=== PATIENT | male | born 1965 | race Two or more races ===

== ENCOUNTER 2024-11-29 14:34 | Inpatient (IN) | payer SELFPAY ==
[~2024-11-29] VITALS: Ht 170.2 cm; Wt 105.2 kg
[2024-11-29 14:37] VITALS: O2SAT 98
[2024-11-29 15:21] LABS: BASOPHILS % 0.9 % (0.0-2.0); EOSINOPHILS % 0.7 % (0.0-5.0); HEMATOCRIT. 46.1 % (42.0-52.0); HEMOGLOBIN. 15.2 g/dL (14.0-18.0); MEAN CORPUSCULAR HEMOGLOBIN 27.7 pg (28.0-32.0); MEAN CORPUSCULAR HGB CONC 32.9 g/dL (31.0-37.0); MEAN CORPUSCULAR VOLUME 84.3 fL (80.0-94.0); MEAN PLATELET VOLUME 10.3 fl (7.4-10.4); MONOCYTES % 8.7 % (2.0-8.0); NEUTROPHILS % 62.7 % (40.0-76.0); PLATELET 230 x1000/uL (130-400); RED BLOOD CELL COUNT 5.47 mill/uL (4.7-6.1); RED CELL DISTRIBUTION WIDTH 14.5 % (11.6-14.6); WHITE BLOOD COUNT 10.3 x1000/uL (4.5-11.0)
[2024-11-29 15:25] LABS: CHLORIDE 106 mEq/L (98-107); POTASSIUM 4.2 mEq/L (3.5-5.1); SODIUM 142 mEq/L (136-145)
[2024-11-29 15:26] LABS: CALCIUM 9.5 mg/dL (8.7-10.4); CARBON DIOXIDE 27 mEq/L (21-32)
[2024-11-29 15:31] LABS: GLUCOSE 135 mg/dL (70-105); UREA NITROGEN BLOOD 13 mg/dL (9-23)
[2024-11-29 15:34] LABS: TROPONIN I HIGH SENSITIVITY 34 ng/L (3.0-53)
[2024-11-29 15:37] LABS: D-DIMER 0.42 mg/L FEU (<0.50); PARTIAL THROMBOPLASTIN TIME 28.1 sec (23.4-31.0); PROTHROMBIN TIME 10.3 sec (9.6-11.0)
[2024-11-29] MEDS: MORPHINE SULFATE 4 MG/ML INJ (FOR IV/IM USE) IV STA (15:43)
[2024-11-29] MEDS: ONDANSETRON HCL 4MG/2ML INJ IV STA (15:43)
[2024-11-29 17:30] LABS: TROPONIN I HIGH SENSITIVITY 64 ng/L (3.0-53)
[2024-11-29] MEDS: ENOXAPARIN 120MG/0.8ML SYR SUBCUT ONE (17:40)
[2024-11-29 18:00] VITALS: BP 155/87; PULSE 61; RESP 14; TEMP 36.7; TEMP 36.8; O2SAT 96
[2024-11-29] MEDS ORDERED: MAGNESIUM/ALUMINUM HYDROXIDE/SIMETHICONE 30ML UDC PO PRN (19:00)
[2024-11-29] MEDS ORDERED: HYDROCODONE/ACETAMINOPHEN 5/325MG TABLET PO PRN (19:00)
[2024-11-29] MEDS ORDERED: CLONIDINE 0.1MG TABLET PO PRN (19:00)
[2024-11-29] MEDS ORDERED: IPRATROPIUM/ALBUTEROL 0.5-3(2.5)MG/3ML NEB HHN PRN (19:00)
[2024-11-29] MEDS ORDERED: DOCUSATE SODIUM 100MG CAPSULE PO PRN (19:00)
[2024-11-29] MEDS ORDERED: MORPHINE SULFATE 2 MG/ML INJ (NOT FOR IM USE) IV PRN (19:00)
[2024-11-29] MEDS ORDERED: GUAIFENESIN 200MG/10ML SUGAR FREE UDC PO PRN (19:00)
[2024-11-29] MEDS ORDERED: NA PHOS,M-B/NA PHOS,DI-BA ENEMA 118ML PR PRN (19:00)
[2024-11-29] MEDS ORDERED: ONDANSETRON HCL 4MG/2ML INJ IV PRN (19:00)
[2024-11-29] MEDS ORDERED: ACETAMINOPHEN 325MG TABLET PO PRN ×2 (19:00)
[2024-11-29] MEDS ORDERED: DEXTROSE 50% WATER 50ML SYRINGE IV PRN (19:00)
[2024-11-29] MEDS ORDERED: FELO5TAB46 PO (19:20)
[2024-11-29 19:31] LABS: ALANINE AMINOTRANSFERASE 45 IU/L (10-49); ALBUMIN 3.6 g/dL (3.2-4.8); ASPARTATE AMINOTRANSFERASE 22 IU/L (<34); BILIRUBIN DIRECT 0.1 mg/dL (<=3.0); BILIRUBIN TOTAL 0.4 mg/dL (0.1-1.0); PHOSPHORUS 2.3 mg/dL (2.5-4.9); PROTEIN TOTAL 6.9 g/dL (6.0-8.3)
[2024-11-29] MEDS: PANTOPRAZOLE 40MG DR TABLET PO SCH (19:36)
[2024-11-29 19:46] LABS: HEPATITIS B SURFACE ANTIGEN NEGATIVE (Negative)
[2024-11-29 20:00] VITALS: BP 155/84; PULSE 58; RESP 16; TEMP 36.4; O2SAT 94
[2024-11-29 20:07] LABS: HEPATITIS C AB NON REACTIVE (Neg) (Negative)
[2024-11-29] MEDS: BLOOD SUGAR DIAGNOSTIC STRIP TEST SCH (21:56)
[2024-11-29] MEDS ORDERED: NALOXONE HCL 0.4MG/ML VIAL IV PRN (22:00)
[2024-11-29] MEDS: ENOXAPARIN 100MG/ML SYR SUBCUT SCH (22:05)
[2024-11-29 22:32] LABS: CREATINE KINASE 497 IU/L (46-171)
[2024-11-29 22:43] LABS: TROPONIN I HIGH SENSITIVITY 2979 ng/L (3.0-53)
[2024-11-29] MEDS ORDERED: IOHEXOL-350 100 ML BOTTLE ONE (23:10)
[2024-11-29] MEDS: POTASSIUM PHOSPHATE 15 MMOL in DEXT 5% WATER 245 ML IV NR (23:20)
[2024-11-30] VITALS (11 sets, daily range): BP systolic 140–160; BP diastolic 75–98; PULSE 61–87; RESP 14–20; TEMP 36.4–36.8; O2SAT 90–96
[2024-11-30 05:06] LABS: CLARITY URINE CLEAR (CLEAR); COLOR URINE YELLOW (YELLOW); GLUCOSE URINE NEGATIVE (NEGATIVE); KETONES URINE NEGATIVE (NEGATIVE); LEUKOCYTE ESTERASE URINE NEGATIVE (NEGATIVE); NITRITE URINE NEGATIVE (NEGATIVE); OCCULT BLOOD URINE NEGATIVE (NEGATIVE); PROTEIN URINE NEGATIVE (NEGATIVE); SPECIFIC GRAVITY URINE 1.052 (1.005-1.030); UROBILINOGEN URINE 0.2 E.U./dL (0.2-1.0)
[2024-11-30 05:15] LABS: *AMPHETAMINES SCREEN URINE NEGATIVE (NEGATIVE); *BARBITURATES SCREEN URINE NEGATIVE (NEGATIVE); *BENZODIAZEPINES SCREEN URINE NEGATIVE (NEGATIVE); *COCAINE SCREEN URINE NEGATIVE (NEGATIVE); METHADONE URINE SCREEN NEGATIVE (NEGATIVE); OPIATES URINE SCREEN PRESUMPTIVE POSITIVE (NEGATIVE); PHENCYCLIDINE URINE SCREEN NEGATIVE (NEGATIVE)
[2024-11-30 05:16] LABS: CANNABINOID URINE SCREEN NEGATIVE (NEGATIVE); ECSTASY MDMA SCREEN URINE NEGATIVE (NEGATIVE)
[2024-11-30 07:42] LABS: CHLORIDE 104 mEq/L (98-107); POTASSIUM 4.1 mEq/L (3.5-5.1); SODIUM 138 mEq/L (136-145)
[2024-11-30 07:43] LABS: CALCIUM 9.2 mg/dL (8.7-10.4); CARBON DIOXIDE 25 mEq/L (21-32)
[2024-11-30 07:48] LABS: CREATININE 0.8 mg/dL (0.6-1.3); GLUCOSE 111 mg/dL (70-105); TRIGLYCERIDE 152 mg/dL (0-150); UREA NITROGEN BLOOD 9 mg/dL (9-23)
[2024-11-30 07:49] LABS: LDL CHOLESTEROL 153 mg/dL (5-100)
[2024-11-30 07:50] LABS: CHOLESTEROL 200 mg/dL (<200); CREATINE KINASE 833 IU/L (46-171); HDL CHOLESTEROL 33 mg/dL (>55)
[2024-11-30 07:52] LABS: T4 FREE 1.14 ng/dL (0.89-1.76)
[2024-11-30 07:53] LABS: THYROID STIMULATING HORMONE 1.49 uIU/mL (0.55-4.78)
[2024-11-30 08:03] LABS: TROPONIN I HIGH SENSITIVITY 11274 ng/L (3.0-53)
[2024-11-30 08:08] LABS: BASOPHILS % 0.7 % (0.0-2.0); EOSINOPHILS % 0.8 % (0.0-5.0); HEMATOCRIT. 44.6 % (42.0-52.0); HEMOGLOBIN. 14.3 g/dL (14.0-18.0); LYMPHOCYTES % 26.7 % (20.0-50.0); MEAN CORPUSCULAR HEMOGLOBIN 26.9 pg (28.0-32.0); MEAN PLATELET VOLUME 10.9 fl (7.4-10.4); MONOCYTES % 8.9 % (2.0-8.0); NEUTROPHILS % 62.9 % (40.0-76.0); PLATELET 218 x1000/uL (130-400); RED BLOOD CELL COUNT 5.31 mill/uL (4.7-6.1); RED CELL DISTRIBUTION WIDTH 14.7 % (11.6-14.6); WHITE BLOOD COUNT 11.5 x1000/uL (4.5-11.0)
[2024-11-30] MEDS: ASPIRIN 81MG TABLET PO SCH (08:45)
[2024-11-30] MEDS: AMLODIPINE 5MG TABLET PO SCH (08:46)
[2024-11-30] MEDS: NITROGLYCERIN 0.4MG TABLET SL SL ONE (08:55)
[2024-11-30] MEDS ORDERED: NITROGLYCERIN 0.4MG TABLET SL SL PRN (12:30)
[2024-11-30 13:59] LABS: CREATINE KINASE MB FRACTION 113.5 ng/mL (0.5-3.6)
[2024-11-30 20:56] LABS: CREATINE KINASE MB FRACTION 83.2 ng/mL (0.5-3.6)
[2024-11-30] MEDS: ATORVASTATIN CALCIUM 40MG TABLET PO SCH (21:57)
[2024-11-30] MEDS: METOPROLOL TARTRATE 25MG TABLET PO SCH (21:58)
[2024-12-01] VITALS (20 sets, daily range): BP systolic 106–159; BP diastolic 73–113; PULSE 58–80; RESP 14–21; TEMP 36.5–37.1; O2SAT 92–98
[2024-12-01 01:52] LABS: CREATINE KINASE MB FRACTION 50.8 ng/mL (0.5-3.6)
[2024-12-01 06:07] LABS: BASOPHILS % 0.6 % (0.0-2.0); EOSINOPHILS % 0.7 % (0.0-5.0); HEMOGLOBIN. 15.7 g/dL (14.0-18.0); MEAN CORPUSCULAR HEMOGLOBIN 27.2 pg (28.0-32.0); MEAN CORPUSCULAR HGB CONC 32.1 g/dL (31.0-37.0); MEAN CORPUSCULAR VOLUME 84.8 fL (80.0-94.0); MEAN PLATELET VOLUME 10.4 fl (7.4-10.4); MONOCYTES % 12.2 % (2.0-8.0); NEUTROPHILS % 65.5 % (40.0-76.0); PLATELET 182 x1000/uL (130-400); RED BLOOD CELL COUNT 5.79 mill/uL (4.7-6.1); RED CELL DISTRIBUTION WIDTH 14.8 % (11.6-14.6); WHITE BLOOD COUNT 12.7 x1000/uL (4.5-11.0)
[2024-12-01 06:17] LABS: CHLORIDE 104 mEq/L (98-107); POTASSIUM 4.1 mEq/L (3.5-5.1); SODIUM 139 mEq/L (136-145)
[2024-12-01 06:18] LABS: CALCIUM 9.4 mg/dL (8.7-10.4)
[2024-12-01 06:19] LABS: CARBON DIOXIDE 26 mEq/L (21-32)
[2024-12-01 06:24] LABS: GLUCOSE 100 mg/dL (70-105); UREA NITROGEN BLOOD 8 mg/dL (9-23)
[2024-12-01] MEDS ORDERED: VERAPAMIL HCL 2.5 MG/1 ML 2ML VIAL IV ONE (11:36)
[2024-12-01] MEDS ORDERED: IODIXANOL 320MG/ML 100 ML BOTTLE IV ONE (11:36)
[2024-12-01] MEDS ORDERED: HEPARIN 1000 UNITS/ML 10ML ONE (11:36)
[2024-12-01] MEDS ORDERED: LIDOCAINE HCL 1% 10 MG/ML 10ML VIAL ONE (11:36)
[2024-12-01] MEDS ORDERED: DIPHENHYDRAMINE 50MG/ML VIAL ONE (12:18)
[2024-12-01] MEDS ORDERED: MIDAZOLAM HCL 2 MG/2 ML VIAL ONE (12:18)
[2024-12-01] MEDS ORDERED: FENTANYL CITRATE/PF 50MCG/ML 2ML VIAL ONE (12:18)
[2024-12-01] MEDS ORDERED: ACETAMINOPHEN 325MG TABLET PO PRN (13:45)
[2024-12-01] MEDS ORDERED: ATROPINE SULFATE 1MG/10ML SYR IV PRN (13:45)
[2024-12-01] MEDS: ENOXAPARIN 100MG/ML SYR SUBCUT SCH (21:02)
[2024-12-02] VITALS: BP 119/78; PULSE 67; RESP 22; TEMP 37.1; O2SAT 93
[2024-12-02 04:00] VITALS: BP 116/72; PULSE 65; RESP 21; TEMP 37.2; O2SAT 93
[2024-12-02 06:35] LABS: CHLORIDE 104 mEq/L (98-107); SODIUM 136 mEq/L (136-145)
[2024-12-02 06:36] LABS: CARBON DIOXIDE 26 mEq/L (21-32)
[2024-12-02 06:37] LABS: CALCIUM 9.2 mg/dL (8.7-10.4)
[2024-12-02 06:40] LABS: BASOPHILS % 0.5 % (0.0-2.0); EOSINOPHILS % 0.7 % (0.0-5.0); HEMATOCRIT. 45.8 % (42.0-52.0); LYMPHOCYTES % 24.1 % (20.0-50.0); MEAN CORPUSCULAR HEMOGLOBIN 26.8 pg (28.0-32.0); MEAN CORPUSCULAR HGB CONC 32.7 g/dL (31.0-37.0); MEAN CORPUSCULAR VOLUME 82.1 fL (80.0-94.0); MEAN PLATELET VOLUME 10.3 fl (7.4-10.4); MONOCYTES % 12.6 % (2.0-8.0); NEUTROPHILS % 62.1 % (40.0-76.0); PLATELET 178 x1000/uL (130-400); RED BLOOD CELL COUNT 5.58 mill/uL (4.7-6.1); RED CELL DISTRIBUTION WIDTH 14.5 % (11.6-14.6); WHITE BLOOD COUNT 12.8 x1000/uL (4.5-11.0)
[2024-12-02 06:41] LABS: CREATININE 0.9 mg/dL (0.6-1.3); GLUCOSE 105 mg/dL (70-105); UREA NITROGEN BLOOD 12 mg/dL (9-23)
[2024-12-02 07:04] VITALS: BP 122/77; PULSE 67; RESP 22; TEMP 37.3; TEMP 37.8; O2SAT 92
[2024-12-02] MEDS: CEFTRIAXONE 1GM/50ML 50 ML IV SCH (09:51)
[2024-12-02] MEDS: AZITHROMYCIN 500MG/250ML 250 ML IV SCH (10:40)
[2024-12-02 11:06] VITALS: BP 114/64; PULSE 68; RESP 21; O2SAT 95
[2024-12-02] MEDS ORDERED: AMLO5TAB88 PO (11:06)
[2024-12-02] MEDS ORDERED: METO25TA6 PO (11:06)
[2024-12-02] MEDS ORDERED: LIP40 PO (11:06)
[2024-12-02] MEDS ORDERED: ASPI-1160 PO (11:06)
[2024-12-02] MEDS ORDERED: NITR0.4T49 SL (11:36)
[2024-12-02] MEDS ORDERED: APIX5TAB PO (11:38)
[2024-12-02] MEDS ORDERED: CLOP-31 PO (11:50)
[2024-12-02 12:00] VITALS: BP 111/78; PULSE 60; RESP 19; O2SAT 91
[2024-12-02 16:00] VITALS: BP 138/85; PULSE 72; RESP 16; TEMP 36.7; O2SAT 92
== END 2024-12-02 19:40 | disposition home or self-care (01) | DRG 190 ==
LOC: ER 14:34 → EDBEDREQ 14:49 → 3WST 17:48
PROVIDERS: ADMIT Internal Medicine; ATTEND Internal Medicine
PROC: 4A023N7 Measurement of Cardiac Sampling and Pressure, Left Heart, Percutaneous Approach (ICD-10-PCS; principal; 2024-12-01)
PROC: B2111ZZ Fluoroscopy of Multiple Coronary Arteries using Low Osmolar Contrast (ICD-10-PCS; 2024-12-01)
DX: I21.4 Non-ST elevation (NSTEMI) myocardial infarction (principal); I26.99 Other pulmonary embolism without acute cor pulmonale; I25.119 Atherosclerotic heart disease of native coronary artery with unspecified angina pectoris; Z20.822 Contact with and (suspected) exposure to COVID-19; E83.39 Other disorders of phosphorus metabolism; I10 Essential (primary) hypertension; R73.03 Prediabetes; J06.9 Acute upper respiratory infection, unspecified; M13.88 Other specified arthritis, other site; Z79.82 Long term (current) use of aspirin; Z80.9 Family history of malignant neoplasm, unspecified
CPT/HCPCS: 36415; 71045; 71275; 80048; 80061; 80076; 80305; 81003; 82550; 82553; 82962; 83036; 83605; 83735; 83880; 84100; 84439; 84443; 84484; 85025; 85347; 85379; 86705; 87340; 87426; 93005; 93306; 93458; 93880; 93923; 93970; 97165; 99291; A4606; C1769; C1887; C1893; J0456; J0696; J1200; J1644; J1650; J2003; J2250; J2270; J2405; J3010; J3490; J7060; Q9967

== ENCOUNTER 2024-12-15 10:43 | Inpatient (IN) | payer SELFPAY ==
[~2024-12-15] VITALS: Ht 172.7 cm; Wt 105.0 kg
[~2024-12-15 10:43] MED LIST: AMLO5TAB88 PO; APIX5TAB PO; ASPI-1160 PO; CLOP-31 PO; LIP40 PO; METO25TA6 PO; NITR0.4T49 SL
[2024-12-15 11:34] LABS: BASOPHILS % 0.7 % (0.0-2.0); HEMATOCRIT. 47.3 % (42.0-52.0); HEMOGLOBIN. 15.9 g/dL (14.0-18.0); LYMPHOCYTES % 27.7 % (20.0-50.0); MEAN CORPUSCULAR HEMOGLOBIN 27.3 pg (28.0-32.0); MEAN CORPUSCULAR HGB CONC 33.6 g/dL (31.0-37.0); MEAN CORPUSCULAR VOLUME 81.3 fL (80.0-94.0); MEAN PLATELET VOLUME 9.7 fl (7.4-10.4); MONOCYTES % 13.8 % (2.0-8.0); NEUTROPHILS % 56.8 % (40.0-76.0); PLATELET 281 x1000/uL (130-400); RED BLOOD CELL COUNT 5.83 mill/uL (4.7-6.1); RED CELL DISTRIBUTION WIDTH 14.1 % (11.6-14.6); WHITE BLOOD COUNT 7.5 x1000/uL (4.5-11.0)
[2024-12-15 11:44] LABS: CHLORIDE 106 mEq/L (98-107); POTASSIUM 4.3 mEq/L (3.5-5.1); SODIUM 136 mEq/L (136-145)
[2024-12-15 11:45] LABS: CALCIUM 9.5 mg/dL (8.7-10.4); CARBON DIOXIDE 23 mEq/L (21-32)
[2024-12-15 11:50] LABS: GLUCOSE 126 mg/dL (70-105); UREA NITROGEN BLOOD 11 mg/dL (9-23)
[2024-12-15 11:52] LABS: ALANINE AMINOTRANSFERASE 74 IU/L (10-49); ALBUMIN 4.2 g/dL (3.2-4.8); ASPARTATE AMINOTRANSFERASE 30 IU/L (<34); BILIRUBIN TOTAL 0.6 mg/dL (0.1-1.0)
[2024-12-15] MEDS: ASPIRIN 325MG EC TABLET PO NR (11:55)
[2024-12-15] MEDS: NITROGLYCERIN 0.4MG TABLET SL SL NR (11:55)
[2024-12-15 13:49] LABS: PROTEIN TOTAL 9.2 g/dL (6.0-8.3)
[2024-12-15 13:50] LABS: TROPONIN I HIGH SENSITIVITY 350 ng/L (3.0-53)
[2024-12-15] MEDS ORDERED: LORAZEPAM 0.5MG TABLET PO PRN (16:30)
[2024-12-15] MEDS ORDERED: ACETAMINOPHEN 325MG TABLET PO PRN ×3 (16:30→18:00)
[2024-12-15] MEDS ORDERED: DOCUSATE SODIUM 100MG CAPSULE PO PRN (16:30)
[2024-12-15] MEDS ORDERED: GUAIFENESIN 200MG/10ML SUGAR FREE UDC PO PRN (16:30)
[2024-12-15] MEDS ORDERED: IPRATROPIUM/ALBUTEROL 0.5-3(2.5)MG/3ML NEB HHN PRN (16:30)
[2024-12-15 17:51] VITALS: BP 148/90; PULSE 71; RESP 17; TEMP 36.9
[2024-12-15] MEDS ORDERED: NITROGLYCERIN 0.4MG TABLET SL SL PRN (18:00)
[2024-12-15 19:00] LABS: INR 1.1; PARTIAL THROMBOPLASTIN TIME 33.1 sec (23.4-31.0); PROTHROMBIN TIME 11.3 sec (9.6-11.0)
[2024-12-15 20:04] VITALS: BP 136/80; PULSE 65; RESP 18; TEMP 36.6; O2SAT 96
[2024-12-15 20:49] LABS: CLARITY URINE CLOUDY (CLEAR); COLOR URINE YELLOW (YELLOW); GLUCOSE URINE NEGATIVE (NEGATIVE); KETONES URINE NEGATIVE (NEGATIVE); LEUKOCYTE ESTERASE URINE NEGATIVE (NEGATIVE); NITRITE URINE NEGATIVE (NEGATIVE); OCCULT BLOOD URINE NEGATIVE (NEGATIVE); PROTEIN URINE TRACE (NEGATIVE); SPECIFIC GRAVITY URINE 1.023 (1.005-1.030)
[2024-12-15] MEDS ORDERED: BISACODYL 10MG SUPP PR PRN (21:00)
[2024-12-15] MEDS ORDERED: DIPHENHYDRAMINE 25MG CAPSULE PO PRN (21:00)
[2024-12-15 21:43] LABS: BACTERIA URINE 1+; RBC URINE 0-2 /hpf (0-2); SQUAMOUS EPITHELIAL CELL URINE 1+ /lpf (RARE/1+); WBC URINE 0-2 /hpf (0-2)
[2024-12-15] MEDS: ASCORBIC ACID 500 MG TABLET PO SCH (21:58)
[2024-12-15] MEDS: DOCUSATE SODIUM 100MG CAPSULE PO SCH (21:58)
[2024-12-15] MEDS: ALLOPURINOL 300 MG TABLET PO SCH (21:59)
[2024-12-15] MEDS: CHLORHEXIDINE GLUCONATE 4% EXTERNAL USE TOP SCH (22:05)
[2024-12-16] VITALS (36 sets, daily range): BP systolic 93–136; BP diastolic 53–97; PULSE 57–116; RESP 16–29; TEMP 36.3–36.8; O2SAT 91–99
[2024-12-16 00:16] LABS: CREATINE KINASE MB FRACTION 2.1 ng/mL (0.5-3.6)
[2024-12-16 01:30] LABS: CLARITY URINE CLEAR (CLEAR); COLOR URINE YELLOW (YELLOW); GLUCOSE URINE NEGATIVE (NEGATIVE); KETONES URINE NEGATIVE (NEGATIVE); LEUKOCYTE ESTERASE URINE NEGATIVE (NEGATIVE); NITRITE URINE NEGATIVE (NEGATIVE); OCCULT BLOOD URINE NEGATIVE (NEGATIVE); PH URINE 5.5 (4.5-8.0); PROTEIN URINE NEGATIVE (NEGATIVE); SPECIFIC GRAVITY URINE 1.016 (1.005-1.030); UROBILINOGEN URINE 0.2 E.U./dL (0.2-1.0)
[2024-12-16] MEDS ORDERED: THROMBIN (BOVINE) 5000 UNITS/VIAL TOP ONE (06:16)
[2024-12-16] MEDS ORDERED: SKIN ADHESIVE 0.7 GM EA TOP ONE (06:16)
[2024-12-16] MEDS ORDERED: POLYMYXIN B SULFATE 500000 UNITS/VIAL ONE (06:16)
[2024-12-16] MEDS ORDERED: NITROGLYCERIN 50MG PREMIX 250 ML IV ONE (06:41)
[2024-12-16] MEDS ORDERED: DOPAMINE 400MG/250ML PREMIX 250 ML IV ONE (06:41)
[2024-12-16] MEDS ORDERED: NICARDIPINE 40MG/200ML PREMIX 200 ML IV ONE (06:41)
[2024-12-16] MEDS ORDERED: DEXMEDETOMIDINE 400 MCG/100 ML 100 ML IV ONE (06:41)
[2024-12-16] MEDS ORDERED: SEVOFLURANE 250 ML LIQUID INH ONE (06:41)
[2024-12-16] MEDS ORDERED: HEPARIN 1000 UNITS/ML 10ML ONE ×3 (06:52→14:45)
[2024-12-16] MEDS ORDERED: SUGAMMADEX SODIUM 200MG/2ML VIAL IV ONE (07:13)
[2024-12-16] MEDS ORDERED: ACETAMINOPHEN 1000MG/100ML 100 ML IV ONE (07:13)
[2024-12-16 07:36] LABS: CREATINE KINASE MB FRACTION 1.6 ng/mL (0.5-3.6)
[2024-12-16] MEDS ORDERED: INSULIN REGULAR 100 U/100 ML PREMIX IV PRN (09:00)
[2024-12-16] MEDS ORDERED: NICARDIPINE 40MG/200ML PREMIX 200 ML IV PRN (09:00)
[2024-12-16] MEDS ORDERED: DOBUTAMINE 250 MG/250 ML PREMIX IV PRN (09:00)
[2024-12-16] MEDS ORDERED: LR with VERAPAMIL, NTG, HEPARIN, SODIUM BICARBONATE (Soln) IV PRN (09:00)
[2024-12-16] MEDS ORDERED: PAPAVERINE HCL 180MG in SODIUM CHLORIDE 0.9% 24ML IV PRN (09:00)
[2024-12-16] MEDS: CLONIDINE 0.1MG TABLET PO PRN (09:08)
[2024-12-16] MEDS: CHLORHEXIDINE GLUCONATE 4% EXTERNAL USE TOP SCH (09:08)
[2024-12-16] MEDS: BLOOD SUGAR DIAGNOSTIC STRIP TEST NR (10:57)
[2024-12-16] MEDS ORDERED: PHENYLEPHRINE HCL 10MG/ML 1ML IV ONE (12:51)
[2024-12-16] MEDS ORDERED: CALCIUM CHLORIDE 1GM/10ML SYR IV ONE (12:53)
[2024-12-16] MEDS ORDERED: LIDOCAINE HCL 2% 5ML SYRINGE IV ONE (12:54)
[2024-12-16] MEDS ORDERED: ROCURONIUM BROMIDE 10MG/ML VIAL 5ML IV ONE ×3 (12:55→13:35)
[2024-12-16] MEDS ORDERED: PROPOFOL 200MG/20ML VIAL IV ONE ×2 (12:55→14:48)
[2024-12-16] MEDS ORDERED: FENTANYL CITRATE/PF 50MCG/ML 2ML VIAL ONE (12:56)
[2024-12-16] MEDS ORDERED: AMINOCAPROIC ACID 250 MG/ML 20ML VIAL ONE (13:31)
[2024-12-16] MEDS ORDERED: METOCLOPRAMIDE HCL 10MG/2ML VIAL ONE (13:34)
[2024-12-16] MEDS ORDERED: FUROSEMIDE 20MG/2ML VIAL ONE ×3 (13:37→15:59)
[2024-12-16] MEDS ORDERED: EPINEPHRINE 0.1MG/ML (1:10,000) 10ML SYR ONE (13:58)
[2024-12-16] MEDS ORDERED: AMIODARONE HCL 50MG/ML 3ML VIAL IV ONE (15:30)
[2024-12-16] MEDS ORDERED: SODIUM BICARBONATE 8.4% 50MEQ/50ML SYR IV ONE ×2 (15:33)
[2024-12-16] MEDS ORDERED: KETOROLAC 30MG/ML VIAL ONE (15:38)
[2024-12-16] MEDS ORDERED: ONDANSETRON HCL 4MG/2ML INJ ONE (15:38)
[2024-12-16] MEDS ORDERED: KCL 20MEQ/100ML PREMIX 200 ML IV ONE (15:39)
[2024-12-16] MEDS ORDERED: ACETAMINOPHEN 325MG TABLET PO PRN (16:00)
[2024-12-16] MEDS ORDERED: MAGNESIUM 1 G PREMIX 100 ML IV PRN (16:00)
[2024-12-16] MEDS ORDERED: ALBUMIN HUMAN 25GM/100ML (25%) IV PRN (16:00)
[2024-12-16] MEDS ORDERED: ALBUMIN HUMAN 12.5G/250ML (5%) IV PRN (16:00)
[2024-12-16] MEDS ORDERED: ALBUMIN HUMAN 12.5G/250ML (5%) IV ONE (16:07)
[2024-12-16 16:21] LABS: CHLORIDE 105 mEq/L (98-107); POTASSIUM 3.5 mEq/L (3.5-5.1); SODIUM 142 mEq/L (136-145)
[2024-12-16 16:22] LABS: CARBON DIOXIDE 23 mEq/L (21-32)
[2024-12-16 16:23] LABS: CALCIUM 8.3 mg/dL (8.7-10.4)
[2024-12-16 16:27] LABS: CREATININE 1.2 mg/dL (0.6-1.3)
[2024-12-16 16:28] LABS: UREA NITROGEN BLOOD 14 mg/dL (9-23)
[2024-12-16 16:29] LABS: ALANINE AMINOTRANSFERASE 63 IU/L (10-49); ALBUMIN 3.1 g/dL (3.2-4.8); ASPARTATE AMINOTRANSFERASE 26 IU/L (<34)
[2024-12-16 16:30] LABS: BILIRUBIN TOTAL 0.5 mg/dL (0.1-1.0); PHOSPHORUS 4.9 mg/dL (2.5-4.9); PROTEIN TOTAL 6.9 g/dL (6.0-8.3)
[2024-12-16] MEDS ORDERED: MAGNESIUM SULFATE 3 GM in DEXT 5% WATER 100 ML IV PRN (16:30)
[2024-12-16] MEDS ORDERED: DEXTROSE 50% WATER 50ML SYRINGE IV PRN ×2 (16:30)
[2024-12-16] MEDS ORDERED: EPINEPHRINE 5 MG in DEXT 5% WATER 245 ML IV PRN (16:30)
[2024-12-16] MEDS: BLOOD SUGAR DIAGNOSTIC STRIP TEST SCH ×2 (16:30→18:00)
[2024-12-16] MEDS ORDERED: CALCIUM CHLORIDE 3,000 MG in DEXT 5% WATER 250 ML IV PRN (16:30)
[2024-12-16] MEDS ORDERED: SODIUM CHLORIDE 0.9% 500 ML IV PRN (16:30)
[2024-12-16] MEDS ORDERED: CALCIUM CHLORIDE 5,000 MG in DEXT 5% WATER 500 ML IV PRN (16:30)
[2024-12-16 16:32] LABS: BASOPHILS % 0.4 % (0.0-2.0); EOSINOPHILS % 0.6 % (0.0-5.0); HEMATOCRIT. 40.8 % (42.0-52.0); HEMOGLOBIN. 13.1 g/dL (14.0-18.0); LYMPHOCYTES % 28.7 % (20.0-50.0); MEAN CORPUSCULAR HEMOGLOBIN 26.1 pg (28.0-32.0); MEAN CORPUSCULAR HGB CONC 32.1 g/dL (31.0-37.0); MEAN CORPUSCULAR VOLUME 81.4 fL (80.0-94.0); MEAN PLATELET VOLUME 10.8 fl (7.4-10.4); MONOCYTES % 4.4 % (2.0-8.0); NEUTROPHILS % 65.9 % (40.0-76.0); PLATELET 321 x1000/uL (130-400); RED BLOOD CELL COUNT 5.01 mill/uL (4.7-6.1); RED CELL DISTRIBUTION WIDTH 14.4 % (11.6-14.6); WHITE BLOOD COUNT 23.5 x1000/uL (4.5-11.0)
[2024-12-16 16:34] LABS: INR 1.2; PARTIAL THROMBOPLASTIN TIME 30.3 sec (23.4-31.0); PROTHROMBIN TIME 12.5 sec (9.6-11.0)
[2024-12-16 16:40] LABS: GLUCOSE 306 mg/dL (70-105)
[2024-12-16] MEDS: EPINEPHRINE 5 MG in DEXT 5% WATER 250 ML IV PRN (16:52)
[2024-12-16] MEDS: DOPAMINE 400MG/250ML PREMIX 250 ML IV PRN ×2 (16:52→23:11)
[2024-12-16] MEDS: INSULIN REGULAR 100U/100ML PMX 100 ML IV SCH (16:53)
[2024-12-16] MEDS: NOREPINEPHRINE 8MG/250ML PMX 250 ML IV PRN (16:53)
[2024-12-16] MEDS: AMINOCAPROIC ACID 5,000 MG in SODIUM CHLORIDE 0.9% 250 ML IV PRN (16:54)
[2024-12-16] MEDS ORDERED: EPINEPHRINE 5 MG in SODIUM CHLORIDE 0.9% 245 ML IV PRN (17:00)
[2024-12-16] MEDS ORDERED: DEXMEDETOMIDINE 400 MCG/100 ML 100 ML IV PRN (17:00)
[2024-12-16 17:15] LABS: BG BASE EXCESS -11.2 mmol/L (-2.0-3.0); BG CARBOXYHEMOGLOBIN 0.4 % (0.5-1.5); BG DEOXYHEMOGLOBIN 2.4 % (0.0-5.0); BG FRACTION INSPIRED OXYGEN 100; BG HCO3 ACT 16.5 mmol/L (21.0-28.0); BG METHEMOGLOBIN 0.3 % (0.5-1.5); BG OXYGEN SATURATION 97.6 % (94.0-98.0); BG OXYHEMOGLOBIN 96.9 % (94.0-98.0); BG PCO2 43.4 mmHg (35.0-48.0); BG PH 7.198 (7.350-7.450); BG PO2 112.5 mmHg (83.0-108.0); BG SAMPLE SITE ALINE; BG TOTAL HEMOGLOBIN 14.1 g/dL (13.5-17.5); BG VENT MODE MASK - NRB
[2024-12-16] MEDS: ALBUMIN HUMAN 12.5G/250ML (5%) IV NR (17:22)
[2024-12-16] MEDS: DEXT 5%/0.45% NACL 1000ML 1,000 ML IV SCH (17:22)
[2024-12-16] MEDS: MAGNESIUM HYDROXIDE 400MG/5ML 30ML UDC PO SCH (17:29)
[2024-12-16] MEDS: ASPIRIN 81MG EC TABLET PO SCH (17:29)
[2024-12-16] MEDS: TAMSULOSIN HCL 0.4MG SR CAPSULE PO SCH (17:30)
[2024-12-16] MEDS: CLOPIDOGREL 75MG TABLET PO SCH (17:30)
[2024-12-16] MEDS: MAGNESIUM 2 G PREMIX 50 ML IV PRN (17:56)
[2024-12-16] MEDS: KCL 10MEQ/50ML PREMIX 150 ML IV PRN (17:56)
[2024-12-16] MEDS: SODIUM BICARBONATE 8.4% 50MEQ/50ML SYR IV NR ×2 (18:21→19:42)
[2024-12-16 19:28] LABS: BG BASE EXCESS -5.1 mmol/L (-2.0-3.0); BG CARBOXYHEMOGLOBIN 0.3 % (0.5-1.5); BG DEOXYHEMOGLOBIN 6.6 % (0.0-5.0); BG FRACTION INSPIRED OXYGEN 40; BG HCO3 ACT 19.8 mmol/L (21.0-28.0); BG METHEMOGLOBIN 0.1 % (0.5-1.5); BG OXYGEN SATURATION 93.4 % (94.0-98.0); BG PCO2 36.6 mmHg (35.0-48.0); BG PH 7.351 (7.350-7.450); BG PO2 70.5 mmHg (83.0-108.0); BG SAMPLE SITE LEFT RADIAL; BG VENT MODE MASK - SIMPLE
[2024-12-16] MEDS: IPRATROPIUM/ALBUTEROL 0.5-3(2.5)MG/3ML NEB HHN SCH (20:28)
[2024-12-16] MEDS: AMIODARONE 150MG/100ML D5W 100 ML IV NR (20:34)
[2024-12-16] MEDS: AMIODARONE 360MG/200ML 200 ML IV SCH (20:50)
[2024-12-16] MEDS: BACITRACIN 14GM TUBE TOP SCH (21:05)
[2024-12-16] MEDS: DOCUSATE SODIUM 100MG CAPSULE PO SCH (21:05)
[2024-12-16] MEDS: AMIODARONE 200MG TABLET PO SCH (21:06)
[2024-12-16] MEDS: CEFAZOLIN 1000MG PREMIX 50 ML IV SCH (21:50)
[2024-12-16] MEDS: EPINEPHRINE 5 MG in DEXT 5% WATER 245 ML IV PRN (22:23)
[2024-12-16] MEDS: FUROSEMIDE 100MG/10ML VIAL IVP NR (22:33)
[2024-12-16] MEDS: KCL 10MEQ/50ML PREMIX 200 ML IV PRN (23:34)
[2024-12-17] VITALS (102 sets, daily range): BP systolic 78–152; BP diastolic 49–79; PULSE 52–104; RESP 14–28; TEMP 36.5–36.7; O2SAT 92–98
[2024-12-17 00:38] LABS: CHLORIDE 100 mEq/L (98-107); SODIUM 139 mEq/L (136-145)
[2024-12-17 00:39] LABS: CALCIUM 8.7 mg/dL (8.7-10.4); CARBON DIOXIDE 22 mEq/L (21-32)
[2024-12-17 00:44] LABS: GLUCOSE 314 mg/dL (70-105)
[2024-12-17 00:45] LABS: UREA NITROGEN BLOOD 20 mg/dL (9-23)
[2024-12-17 00:49] LABS: CREATININE 1.9 mg/dL (0.6-1.3)
[2024-12-17 00:51] LABS: POTASSIUM 2.6 mEq/L (3.5-5.1)
[2024-12-17 00:52] LABS: PHOSPHORUS 0.8 mg/dL (2.5-4.9)
[2024-12-17] MEDS: KCL 20MEQ/100ML PREMIX 100 ML IV NR (03:03)
[2024-12-17] MEDS: ONDANSETRON HCL 4MG/2ML INJ IV PRN ×2 (03:50→18:16)
[2024-12-17] MEDS: KETOROLAC 30MG/ML VIAL IV PRN (04:39)
[2024-12-17 05:20] LABS: HEMATOCRIT. 38.1 % (42.0-52.0); HEMOGLOBIN. 12.5 g/dL (14.0-18.0); MEAN CORPUSCULAR HEMOGLOBIN 26.4 pg (28.0-32.0); MEAN CORPUSCULAR HGB CONC 32.9 g/dL (31.0-37.0); MEAN CORPUSCULAR VOLUME 80.3 fL (80.0-94.0); MEAN PLATELET VOLUME 9.9 fl (7.4-10.4); PLATELET 257 x1000/uL (130-400); RED BLOOD CELL COUNT 4.74 mill/uL (4.7-6.1); RED CELL DISTRIBUTION WIDTH 14.1 % (11.6-14.6); WHITE BLOOD COUNT 21.8 x1000/uL (4.5-11.0)
[2024-12-17 05:31] LABS: DIFFERENTIAL COMMENT 1
[2024-12-17 06:58] LABS: CHLORIDE 99 mEq/L (98-107); POTASSIUM 3.7 mEq/L (3.5-5.1); SODIUM 137 mEq/L (136-145)
[2024-12-17 06:59] LABS: CARBON DIOXIDE 29 mEq/L (21-32)
[2024-12-17 07:04] LABS: CREATININE 1.6 mg/dL (0.6-1.3); GLUCOSE 199 mg/dL (70-105); UREA NITROGEN BLOOD 20 mg/dL (9-23)
[2024-12-17 07:06] LABS: PHOSPHORUS 2.9 mg/dL (2.5-4.9)
[2024-12-17] MEDS: KCL 10MEQ/50ML PREMIX 100 ML IV PRN (08:20)
[2024-12-17] MEDS: FAMOTIDINE 20MG/2ML VIAL IV SCH (09:27)
[2024-12-17] MEDS ORDERED: MAGNESIUM 2 G PREMIX 50 ML IV NR (11:45)
[2024-12-17] MEDS ORDERED: KCL 20MEQ/100ML PREMIX 100 ML IV NR (11:45)
[2024-12-17 12:35] LABS: HEMOGLOBIN. 12.8 g/dL (14.0-18.0); MEAN CORPUSCULAR HEMOGLOBIN 26.4 pg (28.0-32.0); MEAN CORPUSCULAR HGB CONC 32.9 g/dL (31.0-37.0); MEAN CORPUSCULAR VOLUME 80.3 fL (80.0-94.0); MEAN PLATELET VOLUME 10.1 fl (7.4-10.4); PLATELET 259 x1000/uL (130-400); RED BLOOD CELL COUNT 4.86 mill/uL (4.7-6.1); RED CELL DISTRIBUTION WIDTH 14.2 % (11.6-14.6); WHITE BLOOD COUNT 29.6 x1000/uL (4.5-11.0)
[2024-12-17 12:41] LABS: DIFFERENTIAL COMMENT 1
[2024-12-17 12:45] LABS: CARBON DIOXIDE 29 mEq/L (21-32); CHLORIDE 99 mEq/L (98-107); POTASSIUM 4.6 mEq/L (3.5-5.1); SODIUM 136 mEq/L (136-145)
[2024-12-17 12:46] LABS: CALCIUM 8.8 mg/dL (8.7-10.4)
[2024-12-17 12:50] LABS: CREATININE 1.5 mg/dL (0.6-1.3)
[2024-12-17 12:51] LABS: GLUCOSE 118 mg/dL (70-105); UREA NITROGEN BLOOD 21 mg/dL (9-23)
[2024-12-17 12:53] LABS: PHOSPHORUS 4.7 mg/dL (2.5-4.9)
[2024-12-17] MEDS: FUROSEMIDE 40MG/4ML VIAL IVP NR (12:53)
[2024-12-17] MEDS: INSULIN LISPRO 100 UNITS/ML SUBCUT SCH (13:20)
[2024-12-17] MEDS ORDERED: DEXTROSE 50% WATER 50ML SYRINGE IV PRN (13:30)
[2024-12-17 13:52] LABS: PLATELET ESTIMATE NORMAL
[2024-12-17] MEDS: MORPHINE SULFATE 4 MG/ML INJ (FOR IV/IM USE) IV PRN (15:02)
[2024-12-17 15:32] LABS: GIANT PLATELETS 1+; PLATELET ESTIMATE NORMAL
[2024-12-17] MEDS ORDERED: DEXMEDETOMIDINE 400 MCG/100 ML 100 ML IV PRN (15:45)
[2024-12-17] MEDS ORDERED: NALOXONE HCL 0.4MG/ML VIAL IV PRN (16:45)
[2024-12-17] MEDS: BLOOD SUGAR DIAGNOSTIC STRIP TEST SCH (17:50)
[2024-12-17] MEDS: BUMETANIDE 2.5MG/10ML VIAL IV NR (18:17)
[2024-12-17] MEDS: CALCIUM GLUCONATE 3,000 MG in DEXT 5% WATER 70 ML IV NR (21:16)
[2024-12-18] VITALS (59 sets, daily range): BP systolic 104–160; BP diastolic 60–121; PULSE 56–69; RESP 14–28; TEMP 36.6–36.8; O2SAT 91–98
[2024-12-18 07:23] LABS: BASOPHILS % 0.1 % (0.0-2.0); HEMATOCRIT. 38.1 % (42.0-52.0); HEMOGLOBIN. 12.4 g/dL (14.0-18.0); LYMPHOCYTES % 7.8 % (20.0-50.0); MEAN CORPUSCULAR HEMOGLOBIN 26.6 pg (28.0-32.0); MEAN CORPUSCULAR HGB CONC 32.7 g/dL (31.0-37.0); MEAN CORPUSCULAR VOLUME 81.6 fL (80.0-94.0); MONOCYTES % 5.8 % (2.0-8.0); NEUTROPHILS % 86.3 % (40.0-76.0); PLATELET 225 x1000/uL (130-400); RED BLOOD CELL COUNT 4.67 mill/uL (4.7-6.1); RED CELL DISTRIBUTION WIDTH 14.5 % (11.6-14.6); WHITE BLOOD COUNT 26.4 x1000/uL (4.5-11.0)
[2024-12-18 07:28] LABS: CARBON DIOXIDE 32 mEq/L (21-32); CHLORIDE 94 mEq/L (98-107); POTASSIUM 5.1 mEq/L (3.5-5.1); SODIUM 133 mEq/L (136-145)
[2024-12-18 07:29] LABS: CALCIUM 8.9 mg/dL (8.7-10.4)
[2024-12-18 07:30] LABS: PARTIAL THROMBOPLASTIN TIME 33.2 sec (23.4-31.0); PROTHROMBIN TIME 11.1 sec (9.6-11.0)
[2024-12-18 07:34] LABS: CREATININE 1.4 mg/dL (0.6-1.3); GLUCOSE 127 mg/dL (70-105); UREA NITROGEN BLOOD 25 mg/dL (9-23)
[2024-12-18 07:36] LABS: PHOSPHORUS 6.4 mg/dL (2.5-4.9)
[2024-12-18] MEDS: BUMETANIDE 2.5MG/10ML VIAL IV NR (08:28)
[2024-12-18 12:50] LABS: INFLUENZA TYPE A Presumptive Negative (Pres. Neg.)
[2024-12-18 12:51] LABS: INFLUENZA TYPE B Presumptive Negative (Pres. Neg.); RESPIRATORY SYNCYTIAL VIRUS Not Detected (Not Detectd)
[2024-12-18] MEDS: KETOROLAC 15MG/ML VIAL IV PRN (18:00)
[2024-12-19] VITALS (9 sets, daily range): BP systolic 111–136; BP diastolic 58–72; PULSE 58–70; RESP 16–23; TEMP 36.2–36.8; O2SAT 92–96
[2024-12-19 06:45] LABS: BASOPHILS % 0.1 % (0.0-2.0); EOSINOPHILS % 0.1 % (0.0-5.0); HEMATOCRIT. 35.9 % (42.0-52.0); HEMOGLOBIN. 11.9 g/dL (14.0-18.0); LYMPHOCYTES % 9.7 % (20.0-50.0); MEAN CORPUSCULAR HEMOGLOBIN 26.7 pg (28.0-32.0); MEAN CORPUSCULAR HGB CONC 33.3 g/dL (31.0-37.0); MEAN CORPUSCULAR VOLUME 80.3 fL (80.0-94.0); MEAN PLATELET VOLUME 10.5 fl (7.4-10.4); MONOCYTES % 6.9 % (2.0-8.0); NEUTROPHILS % 83.2 % (40.0-76.0); PLATELET 194 x1000/uL (130-400); RED BLOOD CELL COUNT 4.47 mill/uL (4.7-6.1); RED CELL DISTRIBUTION WIDTH 14.5 % (11.6-14.6); WHITE BLOOD COUNT 16.2 x1000/uL (4.5-11.0)
[2024-12-19 06:56] LABS: CALCIUM 8.4 mg/dL (8.7-10.4); CARBON DIOXIDE 30 mEq/L (21-32); CHLORIDE 92 mEq/L (98-107); SODIUM 129 mEq/L (136-145)
[2024-12-19 07:01] LABS: CREATININE 1.2 mg/dL (0.6-1.3); GLUCOSE 120 mg/dL (70-105)
[2024-12-19 07:02] LABS: UREA NITROGEN BLOOD 25 mg/dL (9-23)
[2024-12-19 07:04] LABS: PHOSPHORUS 4.5 mg/dL (2.5-4.9)
[2024-12-19] MEDS: POTASSIUM CHLORIDE 20MEQ TABLET SR PO NR (12:52)
[2024-12-19] MEDS: MAGNESIUM 2 G PREMIX 50 ML IV NR (15:08)
[2024-12-19] MEDS: BUMETANIDE 2.5MG/10ML VIAL IV NR (15:08)
[2024-12-19 15:23] LABS: BG BASE EXCESS 4.1 mmol/L (-2.0-3.0); BG CARBOXYHEMOGLOBIN 0.9 % (0.5-1.5); BG DEOXYHEMOGLOBIN 7.1 % (0.0-5.0); BG FRACTION INSPIRED OXYGEN 32; BG HCO3 ACT 26.4 mmol/L (21.0-28.0); BG METHEMOGLOBIN 0.3 % (0.5-1.5); BG OXYGEN SATURATION 92.8 % (94.0-98.0); BG OXYHEMOGLOBIN 91.7 % (94.0-98.0); BG PCO2 32.6 mmHg (35.0-48.0); BG PH 7.527 (7.350-7.450); BG PO2 63.5 mmHg (83.0-108.0); BG SAMPLE SITE LEFT RADIAL; BG TOTAL HEMOGLOBIN 13.1 g/dL (13.5-17.5); BG VENT MODE NASAL CANNULA
[2024-12-20] VITALS (8 sets, daily range): BP systolic 107–151; BP diastolic 58–92; PULSE 64–82; RESP 16–20; TEMP 36.7–36.9; O2SAT 94–97
[2024-12-20] MEDS: BUMETANIDE 2.5MG/10ML VIAL IV NR (11:31)
[2024-12-20 13:26] LABS: HEMATOCRIT 42.2 % (42.0-52.0); HEMOGLOBIN 13.9 g/dL (14.0-18.0); MEAN CORPUSCULAR HEMOGLOBIN 26.8 pg (28.0-32.0); MEAN CORPUSCULAR VOLUME 81.3 fL (80.0-94.0); PLATELET 270 x1000/uL (130-400); RED BLOOD CELL COUNT 5.19 mill/uL (4.7-6.1); RED CELL DISTRIBUTION WIDTH 14.1 % (11.6-14.6); WHITE BLOOD COUNT 12.3 x1000/uL (4.5-11.0)
[2024-12-20 13:32] LABS: CHLORIDE 92 mEq/L (98-107); POTASSIUM 3.6 mEq/L (3.5-5.1); SODIUM 133 mEq/L (136-145)
[2024-12-20 13:33] LABS: CARBON DIOXIDE 32 mEq/L (21-32)
[2024-12-20 13:34] LABS: CALCIUM 8.8 mg/dL (8.7-10.4)
[2024-12-20 13:38] LABS: CREATININE 1.1 mg/dL (0.6-1.3); GLUCOSE 96 mg/dL (70-105); UREA NITROGEN BLOOD 18 mg/dL (9-23)
[2024-12-20 19:05] LABS: BG CARBOXYHEMOGLOBIN 0.6 % (0.5-1.5); BG DEOXYHEMOGLOBIN 7.9 % (0.0-5.0); BG FRACTION INSPIRED OXYGEN 21; BG HCO3 ACT 31.9 mmol/L (21.0-28.0); BG METHEMOGLOBIN 0.3 % (0.5-1.5); BG OXYHEMOGLOBIN 91.2 % (94.0-98.0); BG PCO2 37.4 mmHg (35.0-48.0); BG PH 7.549 (7.350-7.450); BG PO2 56.6 mmHg (83.0-108.0); BG SAMPLE SITE LEFT RADIAL; BG TOTAL HEMOGLOBIN 14.4 g/dL (13.5-17.5); BG VENT MODE ROOM AIR
[2024-12-20] MEDS: ATORVASTATIN CALCIUM 40MG TABLET PO SCH (21:05)
[2024-12-20] MEDS: FAMOTIDINE 20MG TABLET PO SCH (21:06)
[2024-12-21] VITALS: BP 123/69; PULSE 67; RESP 16; TEMP 36.8; O2SAT 96
[2024-12-21 04:00] VITALS: BP 116/95; PULSE 68; RESP 16; TEMP 37; O2SAT 93
[2024-12-21 07:26] VITALS: BP 122/78; PULSE 70; RESP 16; TEMP 36.7; O2SAT 95
[2024-12-21 07:46] LABS: BASOPHILS % 0.6 % (0.0-2.0); EOSINOPHILS % 1.1 % (0.0-5.0); HEMATOCRIT. 38.9 % (42.0-52.0); HEMOGLOBIN. 13.1 g/dL (14.0-18.0); MEAN CORPUSCULAR HEMOGLOBIN 27.2 pg (28.0-32.0); MEAN CORPUSCULAR HGB CONC 33.8 g/dL (31.0-37.0); MEAN CORPUSCULAR VOLUME 80.4 fL (80.0-94.0); MONOCYTES % 10.9 % (2.0-8.0); NEUTROPHILS % 65.4 % (40.0-76.0); PLATELET 242 x1000/uL (130-400); RED BLOOD CELL COUNT 4.83 mill/uL (4.7-6.1); RED CELL DISTRIBUTION WIDTH 14.2 % (11.6-14.6); WHITE BLOOD COUNT 9.6 x1000/uL (4.5-11.0)
[2024-12-21 07:51] LABS: CARBON DIOXIDE 31 mEq/L (21-32); CHLORIDE 97 mEq/L (98-107); POTASSIUM 3.9 mEq/L (3.5-5.1); SODIUM 135 mEq/L (136-145)
[2024-12-21 07:52] LABS: CALCIUM 8.8 mg/dL (8.7-10.4)
[2024-12-21 07:57] LABS: CREATININE 1.1 mg/dL (0.6-1.3); GLUCOSE 112 mg/dL (70-105); UREA NITROGEN BLOOD 17 mg/dL (9-23)
[2024-12-21 09:23] VITALS: PULSE 80; RESP 20; O2SAT 92
[2024-12-21] MEDS: LACTULOSE 20G/30ML UDC PO NR (09:35)
[2024-12-21 11:52] VITALS: BP 136/85; PULSE 70; RESP 16; TEMP 36.7; O2SAT 93
[2024-12-21] MEDS: BUMETANIDE 2.5MG/10ML VIAL IV NR (12:15)
[2024-12-21] MEDS ORDERED: LIP40 PO (13:37)
[2024-12-21] MEDS ORDERED: BUME2TAB34 PO (13:37)
[2024-12-21] MEDS ORDERED: ASPI-1406 PO (13:37)
[2024-12-21] MEDS ORDERED: TAMS-54 PO (13:37)
[2024-12-21] MEDS ORDERED: MAGN500C4 PO (13:37)
[2024-12-21] MEDS ORDERED: NITR0.4T49 SL (13:37)
[2024-12-21] MEDS ORDERED: BUME0.5T6 PO (13:37)
[2024-12-21] MEDS ORDERED: POTA-204 PO (13:37)
[2024-12-21] MEDS ORDERED: CLOP-31 PO (13:37)
[2024-12-21] MEDS ORDERED: AMI2 PO (13:37)
[2024-12-21] MEDS ORDERED: METO25TA6 MT (13:37)
[2024-12-21 13:44] VITALS: BP 120/80; PULSE 70; TEMP 98; O2SAT 98
== END 2024-12-21 15:53 | disposition home or self-care (01) | DRG 166 ==
LOC: ER 10:43 → 3WST 14:53 → CVICU 12-16 14:27 → 3WST 12-18 22:00
PROVIDERS: ADMIT Internal Medicine; ATTEND Internal Medicine
PROC: 02100Z9 Bypass Coronary Artery, One Artery from Left Internal Mammary, Open Approach (ICD-10-PCS; principal; 2024-12-16)
PROC: 021109W Bypass Coronary Artery, Two Arteries from Aorta with Autologous Venous Tissue, Open Approach (ICD-10-PCS; 2024-12-16)
PROC: 06BP4ZZ Excision of Right Saphenous Vein, Percutaneous Endoscopic Approach (ICD-10-PCS; 2024-12-16)
DX: I25.10 Atherosclerotic heart disease of native coronary artery without angina pectoris (principal); I21.4 Non-ST elevation (NSTEMI) myocardial infarction; I42.9 Cardiomyopathy, unspecified; I10 Essential (primary) hypertension; E78.00 Pure hypercholesterolemia, unspecified; Z79.01 Long term (current) use of anticoagulants; Z79.899 Other long term (current) drug therapy; Z79.82 Long term (current) use of aspirin; I25.2 Old myocardial infarction; Z86.711 Personal history of pulmonary embolism; Z87.01 Personal history of pneumonia (recurrent)
CPT/HCPCS: 36415; 36600; 71045; 80048; 80053; 81003; 82375; 82553; 82805; 82962; 83036; 83735; 84100; 84484; 85025; 85027; 85347; 85384; 86850; 86900; 86920; 87420; 87804; 93005; 94060; 94070; 94640; 94664; 94760; 97110; 97116; 97162; 97166; 97530; 97535; 98960; 99291; A4606; C1729; C1751; C1758; J0282; J0610; J0690; J1250; J1265; J1644; J1815; J1885; J1940; J2003; J2270; J2371; J2405; J2440; J2704; J2765; J3010; J3475; J3480; J3490; J7050; J7060; J7120; L3908; P9041; C1713; J0131